=== PATIENT | female | born 1990 | race Caucasian/White ===

== ENCOUNTER 2017-04-13 03:41 | Inpatient (IN) | payer OTHER ==
[2017-04-13] VITALS (7 sets, daily range): BP systolic 99–128; BP diastolic 51–79
[~2017-04-13] VITALS: Ht 162.6 cm; Wt 130.9 kg
[~2017-04-13 03:41] MED LIST: Chromagen, Feogen, M PO; IBUPROFEN800 MG PO; Motrin PO; NORCO 5/3251 TABLET PO; PRENATAL TABLE1 EAC3 PO
[2017-04-13 05:37] LABS: EOSINOPHIL (%) 0.1 % (0-5); HEMATOCRIT 35.5 % (36.0-46.0); IMMATURE GRANULOCYTE (%) 0.8 % (0.0-0.7); IMMATURE GRANULOCYTE COUNT 0.1 K/uL; LYMPHOCYTE COUNT 1.4 K/uL (1.0-2.8); MCH 27.1 PG (29.0-34.0); MCHC 32.1 G/DL (30.0-36.0); MCV 84.5 FL (83-99); MEAN PLAT.VOLUME 11.2 uM^3 (9.5-12.4); MONOCYTE (%) 5.3 % (3-12); MONOCYTE COUNT 0.8 K/uL (0-0.8); NEUTROPHIL (%) 84.2 % (45-76); PLATELET COUNT 225 K/uL (156-360); WHITE BLOOD COUNT 15.4 K/uL (4.1-10.2)
[2017-04-14 07:00] LABS: EOSINOPHIL (%) 1.4 % (0-5); EOSINOPHIL COUNT 0.2 K/uL (0-0.3); HEMATOCRIT 34.1 % (36.0-46.0); IMMATURE GRANULOCYTE (%) 0.7 % (0.0-0.7); IMMATURE GRANULOCYTE COUNT 0.1 K/uL; INSTRUMENT ABS NEUTROPHIL CT 10.4 K/uL; MCH 28.1 PG (29.0-34.0); MCHC 32.8 G/DL (30.0-36.0); MCV 85.7 FL (83-99); MEAN PLAT.VOLUME 11.6 uM^3 (9.5-12.4); NEUTROPHIL (%) 76.1 % (45-76); NEUTROPHIL COUNT 10.4 K/uL (1.8-6.4); PLATELET COUNT 227 K/uL (156-360); RBC DIS.WIDTH-CV 13.2 % (11.8-14.6); RBC DIS.WIDTH-SD 40.7 % (39-53); RED BLOOD COUNT 3.98 M/uL (3.80-5.20); WHITE BLOOD COUNT 13.6 K/uL (4.1-10.2)
[2017-04-14 07:16] VITALS: BP 108/64
== END 2017-04-14 11:22 | disposition home or self-care (01) | DRG 775 ==
LOC: LDRP-OP → 2WEST 03:42 → LDRP-OP 06-08 15:29
PROVIDERS: Advanced Practice Midwife
PROC: 10E0XZZ Delivery of Products of Conception, External Approach (ICD-10-PCS; principal; 2017-04-13)
DX: O60.14X0 Preterm labor third trimester with preterm delivery third trimester, not applicable or unspecified (principal); O62.3 Precipitate labor; O69.81X0 Labor and delivery complicated by cord around neck, without compression, not applicable or unspecified; O40.3XX0 Polyhydramnios, third trimester, not applicable or unspecified; O99.214 Obesity complicating childbirth; E66.9 Obesity, unspecified; Z68.45 Body mass index [BMI] 70 or greater, adult; Z3A.35 35 weeks gestation of pregnancy; Z37.0 Single live birth
CPT/HCPCS: 85025; 88307; J2590